=== PATIENT | male | born 1975 | race American Indian/Alaskan Native ===

== ENCOUNTER 2019-02-24 00:19 | Emergency (ER) | payer SELFPAY ==
[2019-02-24 00:32] VITALS: BP 127/79
--- NOTE | 2019-02-24 00:59 | Emergency Department Report ---
ED Chest Pain HPI - General Chief Complaint: Chest Pain Stated Complaint: CHEST PAIN Time Seen by Provider: 02/24/19 00:53 Source: patient Mode of arrival: Ambulatory Limitations: No Limitations - History of Present Illness Initial Comments: 43-year-old -[place] male presents to the emergency room with his for mid chest pain that radiates to the left and right arm 3 months. Patient reports that the pain has gotten worse tonight. Patient states is worse with lying down and better with sitting up and taking pain medication. Patient de nies any nausea vomiting or shortness of breath. Patient states chest pain started when he was lifting things out of the car. Patient has no primary care provider medical history takes no medications on a daily basis and has no known drug allergies. Patient states that he does smoke cigarettes. MD Complaint: chest pain Onset/Timin -: month(s) Pain Location: other (midsternal) Pain Radiation: RUE, LUE Severity: severe Severity scale (0 -10): 8 Quality: tightness, pressure Consistency: intermittent Improves With: nothing Worsens With: nothing re: denies: nausea, vomting, diaphoresis, dyspnea, sense of impending doom Other Symptoms: denies: cough, fever, syncope, rash, acid taste in mouth, leg swelling, palpitations, burping Treatments Prior to Arrival: none - Related Data Previous Rx's Medication Instructions Recorded Last Taken Type HYDROcodone/APAP 7.5-325 [[place] 1 each PO Q8HR PRN #12 tablet 02/24/19 Unknown Rx 7.5/325] Allergies Allergy/AdvReac Type Severity Reaction Status Date / Time No Known Allergies Allergy Unverified 02/24/19 01:01 Heart Score - HEART Score History: Slightly suspicious EKG: Normal Age: < 45 Risk factors: 1-2 risk factors Troponin: 1-3x normal limit HEART Score: 2 ED Review of Systems ROS: Stated complaint: CHEST PAIN Other details as noted in HPI ED Past Medical Hx - Past Medical History Previous Medical History?: No - Surgical History Past Surgical History?: No - Social History Smoking Status: Current Every Day Smoker Substance Use Type: None - Medications Home Medications: Home Medications Medication Instructions Recorded Confirmed Last Taken Type HYDROcodone/APAP 7.5-325 [[place] 1 each PO Q8HR PRN #12 tablet 02/24/19 Unknown Rx 7.5/325] ED Physical Exam - General Limitations: No Limitations General appearance: alert, in no apparent distress - Head Head exam: Present: atraumatic, normocephalic - Eye Eye exam: Present: normal appearance - ENT ENT exam: Present: mucous membranes moist - Neck Neck exam: Present: normal inspection - Respiratory Respiratory exam: Present: normal lung sounds bilaterally. Absent: respiratory distress - Cardiovascular Cardiovascular Exam: Present: regular rate, normal rhythm. Absent: systolic murmur, diastolic murmur, rubs, gallop - GI/Abdominal GI/Abdominal exam: Present: soft, normal bowel sounds - Rectal Rectal exam: Present: deferred - Extremities Exam Extremities exam: Present: normal inspection, full ROM - Back Exam Back exam: Present: normal inspection, full ROM. Absent: tenderness - Neurological Exam Neurological exam: Present: alert, oriented X3, normal gait - Psychiatric Psychiatric exam: Present: normal affect, normal mood - Skin Skin exam: Present: warm, dry, intact, normal color. Absent: rash ED Course Vital Signs 02/24/19 02/24/19 00:30 01:17 Temperature 98.3 F Pulse Rate 77 Respiratory 20 16 Rate Blood Pressure 127/79 O2 Sat by Pulse 98 Oximetry MICHAEL score - Michael Score Age > 65: (0) No Aspirin use within the Past 7 Days: (0) No 3 or more CAD Risk Factors: (0) No 2 or more Angina events in past 24 hrs: (0) No Known CAD with more than 50% Stenosis: (0) No Elevated Cardiac Markers: (0) No ST Deviation Greater than 0.5mm: (0) No MICHAEL Score: 0 ED Medical Decision Making - Lab Data Result diagrams: 02/24/19 01:18 02/24/19 01:18 - Radiology Data Radiology results: report reviewed Patient: MASSIEL GARAY MR#: [id number] : 1975 Acct:[id number] Age/Sex: 43 / M ADM Date: 02/24/19 Loc: ED Attending Dr: Ordering Physician: CYN HOUGH Date of Service: 02/24/19 Procedure(s): XR chest routine 2V Accession Number(s): [id number] cc: CYN HOUGH Fluoro Time In Minutes: CHEST 2 VIEWS, 02/24/2019 1:05 AM INDICATION: Chest pain COMPARISON: None FINDINGS: Support devices: None Heart: The heart is normal in size. Lungs/pleura: There is a 5 cm irregular density within the left superhilar re gion. The right lung appears grossly clear. There is no pleural effusion. Additional findings: Evaluation of bony structures demonstrates no evidence of acute bony abnormality. IMPRESSION: 1. Left superhilar density suspicious for a mass. CT of the chest is recommended for better evaluation. Signer Name: Iman Ba MD Signed: 02/24/2019 1:25 AM Workstation Name: [id number] Transcribed By: EB Dictated By: Iman Ba MD Electronically Authenticated By: Iman Ba MD Signed Date/Time: 02/24/19124 DD/ 3 TD/TT: Patient: MASSIEL GARAY MR#: [id number] : 1975 Acct:[id number] Age/Sex: 43 / M ADM Date: 02/24/19 Loc: ED Attending Dr: Ordering Physician: CYN HOUGH Date of Service: 02/24/19 Procedure(s): CT chest w con Accession Number(s): [id number] cc: CYN HOUGH CT chest without contrast, 02/24/2019 Clinical information: Abnormal chest radiograph. Left lung mass. Technical: Multiple axial CT images of the chest were acquired without intravenous contrast. Sagittal and coronal reformats were obtained. All CTs at this facility utilized dose reduction techniques including automated exposure control, iterative reconstruction and weight based dosing when appropriate to reduce patient radiation dose to as low as reasonably achievable. Comparison: Chest radiograph, 02/24/2019 Findings: There is a left upper lobe mass with air bronchograms which measures approximately 6.4 x 5.3 x 4.0 cm, as demonstrated on the recent chest radiograph. This mass appears to extend to the left superhilar region and encases and narrows the left pulmonary vein. There are multiple pathologically enlarged lymph nodes within the AP window and subcarinal space. The largest of these measures 2 cm in short axis. The right lung appears grossly clear. There is no pleural effusion. The heart is normal in size. Limited imaging of the upper abdomen demonstrates several low density hepatic lesions, the largest of which measures 3.9 cm. No free fluid is seen within the upper abdomen. Evaluation of bony structures demonstrates no evidence of destructive bony lesion. Impression: 1. Left upper lobe mass as described above with diffuse mediastinal adenopathy highly suggestive for bronchogenic carcinoma. 2. Multiple low density hepatic lesions concerning for hepatic metastasis. Signer Name: Iman Ba MD Signed: 02/24/2019 4:37 AM Workstation Name: [id number] Transcribed By: EB Dictated By: Iman Ba MD Electronically Authenticated By: Iman Ba MD Signed Date/Time: 02/24/197 DD/ 7 TD/TT: - Medical Decision Making 43-year-old -[place] male presents to the emergency room with his for mid chest pain that radiates to the left and right arm 3 months. Patient reports that the pain has gotten worse tonight. Patient states is worse with lying down and better with sitting up and taking pain medication. Patient denies any nausea vomiting or shortness of breath. Patient states chest pain started when he was lifting things out of the car. Patient has no primary care provider medical history takes no medications on a daily basis and has no known drug allergies. Patient states that he does smoke cigarettes. Chest x-ray shows a mass in the upper lobe. Recommendation CT scan. 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 Hepatic lesions concerning for metastatic cancer. Discussed case with Dr. Daria Tracy. Refer patient to hematology oncologists Dr. Del Rio. Patient be discharged home with [place]. Critical care attestation.: If time is entered above; I have spent that time in minutes in the direct care of this critically ill patient, excluding procedure time. 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 Prescriptions: HYDROcodone/APAP 7.5-325 [[place] 7.5/325] 1 each PO Q8HR PRN #12 tablet PRN Reason: Pain Referrals: PRIMARY CARE, [Primary Care Provider] - 3-5 Days EDUARDA SANFORD MD [Staff Physician] - 3-5 Days Forms: Work/School Release Form(ED), Accompanied Note
[2019-02-24] MEDS ORDERED: IBUPROFEN 600 MG TAB PO ONE (01:02)
--- NOTE | 2019-02-24 01:30 | XRay Report ---
CHEST 2 VIEWS, 02/24/2019 1:05 AM INDICATION: Chest pain COMPARISON: None FINDINGS: Support devices: None Heart: The heart is normal in size. Lungs/pleura: There is a 5 cm irregular density within the left superhilar region. The right lung elena ears grossly clear. There is no pleural effusion. Additional findings: Evaluation of bony structures demonstrates no evidence of acute bony abnormality . IMPRESSION: 1. Left superhilar density suspicious for a mass. CT of the chest is recommended for better evaluatio n. Signer Name: Iman Ba MD Signed: 02/24/2019 1:25 AM Workstation Name: [id number]
[2019-02-24 01:33] LABS: Basophils # (Auto) 0.1 K/mm3 (0.0-0.1); Basophils % (Auto) 0.7 % (0.0-1.8); Eosinophils # (Auto) 0.2 K/mm3 (0.0-0.4); Eosinophils % (Auto) 1.2 % (0.0-4.3); Hematocrit 36.3 % (35.5-45.6); Hemoglobin 11.7 gm/dl (11.8-15.2); Lymphocytes # (Auto) 2.1 K/mm3 (1.2-5.4); Lymphocytes % (Auto) 14.1 % (13.4-35.0); Mean Corpuscular HGB Conc 32 % (32-34); Mean Corpuscular Volume 90 fl (84-94); Monocytes # (Auto) 1.8 K/mm3 (0.0-0.8); Monocytes % (Auto) 11.8 % (0.0-7.3); Platelet Count 495 K/mm3 (140-440); Red Blood Count 4.01 M/mm3 (3.65-5.03); Red Cell Distribution Width 13.6 % (13.2-15.2)
[2019-02-24 01:52] LABS: Alanine Aminotransferase 14 units/L (7-56); Albumin 3.9 g/dL (3.9-5); BUN/Creatinine Ratio 15; Blood Urea Nitrogen 12 mg/dL (9-20); Calcium 8.9 mg/dL (8.4-10.2); Hemolysis Index 2
--- NOTE | 2019-02-24 04:41 | Cat Scan Report ---
CT chest without contrast, 02/24/2019 Clinical information: Abnormal chest radiograph. Left lung mass. Technical: Multiple axial CT images of the chest were acquired without intravenous contrast. Sagittal and coronal reformats were obtained. All CTs at this facility utilized dose reduction techniques inc luding automated exposure control, iterative reconstruction and weight based dosing when appropriate to reduce patient radiation dose to as low as reasonably achievable. Comparison: Chest radiograph, 02/24/2019 Findings: There is a left upper lobe mass with air bronchograms which measures approximately 6.4 x 5. 3 x 4.0 cm, as demonstrated on the recent chest radiograph. This mass appears to extend to the left s uperhilar region and encases and narrows the left pulmonary vein. There are multiple pathologically e nlarged lymph nodes within the AP window and subcarinal space. The largest of these measures 2 cm in short axis. The right lung appears grossly clear. There is no pleural effusion. The heart is normal i n size. Limited imaging of the upper abdomen demonstrates several low density hepatic lesions, the largest of which measures 3.9 cm. No free fluid is seen within the upper abdomen. Evaluation of bony structures demonstrates no evidence of destructive bony lesion. Impression: 1. Left upper lobe mass as described above with diffuse mediastinal adenopathy highly suggestive for bronchogenic carcinoma. 2. Multiple low density hepatic lesions concerning for hepatic metastasis. Signer Name: Iman Ba MD Signed: 02/24/2019 4:37 AM Workstation Name: [id number]
== END 2019-02-24 05:03 | disposition home or self-care (01) ==
LOC: ED 00:19
DX: R07.89 Other chest pain (principal); C34.90 Malignant neoplasm of unspecified part of unspecified bronchus or lung
CPT/HCPCS: 36415; 71046; 71260; 80053; 83690; 84484; 85025; 93005; 93010; 99284; Q9967